=== PATIENT | female | born 1960 | race Caucasian/White ===

== ENCOUNTER → 2016-07-16 | Outpatient (CLI) | payer OTHER ==
[~2016-07-16] MED LIST: BROM5CAP PO; PRLD25 PO
== END | disposition home or self-care (01) ==
LOC: C.LAB1850 09:19
PROVIDERS: ATTEND Obstetrics & Gynecology
DX: Z80.41 Family history of malignant neoplasm of ovary (principal); D49.7 Neoplasm of unspecified behavior of endocrine glands and other parts of nervous system

== ENCOUNTER → 2016-09-19 | Outpatient (CLI) | payer OTHER ==
[~2016-09-19] MED LIST changes: -PRLD25 PO
--- NOTE | 2016-09-20 12:43 | MAMMOGRAPHY REPORT ---
BILATERAL DIGITAL SCREENING MAMMOGRAM TOMOSYNTHESIS WITH CAD: 09/19/2016 CLINICAL HISTORY: Routine screening. Patient has no complaints. TECHNIQUE: Breast tomosynthesis in addition to standard 2D mammography was performed. Current study was also evaluated with a Computer Aided Detection (CAD) system. COMPARISON: Comparison is made to exams dated: 09/15/2015 mammogram and 09/13/2014 mammogram - [facility]. Also prior outside mammograms dated 05/23/2010, 05/22/2009. BREAST COMPOSITION: There are scattered areas of fibroglandular density in both breasts. FINDINGS: No suspicious masses, calcifications, or areas of architectural distortion are noted in ei ther breast. There has been no significant interval change compared to prior exams. Scattered bilater al benign-appearing calcifications are not significantly changed. IMPRESSION: ACR BI-RADS CATEGORY 2: BENIGN There is no mammographic evidence of malignancy. A 1 year screening mammogram is recommended. The pa tient will receive written notification of the results. Approximately 10% of breast cancers are not detected with mammography. A negative mammographic report should not delay biopsy if a clinically suggestive mass is present. Chanel Valentin M.D. /:09/19/2016 15:55:18 Spectroscopist: Shalini BURGESS(Saul)(Marc)(BD), [facility] letter sent: Normal 1/2 BI-RADS Code: ACR BI-RADS Category 2: Benign
== END | disposition home or self-care (01) ==
LOC: C.MAMM 10:09
PROVIDERS: ATTEND Obstetrics & Gynecology
DX: Z12.31 Encounter for screening mammogram for malignant neoplasm of breast (principal)

== ENCOUNTER 2017-01-07 14:31 | Emergency (ER) | payer OTHER ==
[~2017-01-07] VITALS: Ht 175.3 cm; Wt 89.0 kg
[2017-01-07 14:42] VITALS: TEMP 36.8; Ht 175.3 cm; Wt 89.0 kg
--- NOTE | 2017-01-07 15:19 | DIAGNOSTIC IMAGING REPORT ---
CHEST ONE VIEW PORTABLE CLINICAL HISTORY: Chest pain. COMPARISON STUDY: No previous studies for comparison. FINDINGS: Lung volumes are normal. No pneumothorax or pleural effusion is present. Pulmonary vascularity is normal. No consolidation is identified. Cardiac size is at the upper limits of normal. IMPRESSION: No acute cardiopulmonary findings. Electronically signed by: Salas Reyes M.D. 01/07/2017 3:18 PM Dictated Date/Time: 01/07/2017 3:18 PM
[2017-01-07] MEDS ORDERED: PRLD25 PO (15:21)
[2017-01-07 15:26] VITALS: O2SAT 99
[2017-01-07 15:44] LABS: BASO % 0.3 %; BASO ABS # 0.02 K/uL (0-0.2); COMPLETE YES; EOS % 1.1 %; HEMATOCRIT 43.6 % (37-47); IG% 0.2 %; LYMPH % 38.9 %; LYMPH ABS # 2.55 K/uL (1.2-3.4); MEAN CELL VOLUME 93.6 fL (80-100); MEAN CORPUSCULAR HEMOGLOBIN 30.5 pg (25-34); MEAN CORPUSCULAR HGB CONC 32.6 g/dl (32-36); MEAN PLATELET VOLUME 11.2 fL (7.4-10.4); MONO % 6.4 %; NEUT % 53.1 %; PLATELET COUNT 180 K/uL (130-400); RED BLOOD COUNT 4.66 M/uL (4.2-5.4); WHITE BLOOD COUNT 6.56 K/uL (4.8-10.8)
[2017-01-07 16:01] LABS: ALT/SGPT 21 U/L (12-78); BLOOD UREA NITROGEN 23 mg/dl (7-18); BUN/CREATININE RATIO 29.8 (10-20); CALCIUM 8.7 mg/dl (8.5-10.1); CARBON DIOXIDE 27 mmol/L (21-32); CHLORIDE 107 mmol/L (98-107); CREATININE 0.77 mg/dl (0.60-1.20); GLUCOSE 82 mg/dl (70-99); POTASSIUM 3.7 mmol/L (3.5-5.1); SODIUM 142 mmol/L (136-145)
[2017-01-07 16:06] LABS: ALKALINE PHOSPHATASE 74 U/L (45-117); AST/SGOT 14 U/L (15-37); CKMB/CK RATIO 1.6 (0-3.0)
[2017-01-07 16:22] VITALS: BP 126/78; PULSE 78; O2SAT 97
--- NOTE | 2017-01-07 16:24 | EMERGENCY ROOM VISIT NOTE ---
History First contact with patient: 14:46 Chief Complaint: CHEST PAIN Stated Complaint: CHEST PAIN Nursing Triage Summary: CP substernal starting Friday, radiating to left shoulder and back with movement. Denies SOB. CP 210. History of Present Illness The patient is a 56 year old female who presents to the Emergency Room with complaints of substernal chest pain and left shoulder pain. The patient reports that her chest discomfort started on Friday. Today, she then started to have left shoulder discomfort. The patient believes it is because of her grandchild who is very active. The patient reports that she has been running after him over the past several days. The patient therefore believes that her symptoms are musculoskeletal, and noticed that her pain was worsened when her grandson was laying his head on her left anterior chest wall. The patient currently denies any pain extending into the neck or central back region. Her pain is not worsened with deep breathing, and is slightly worsened with movement. She currently denies any shortness of breath. The patient reports that she did have palpitations and heaviness that warranted an ER evaluation of a little over a year ago at her facility. The patient reports that she did not require cardiology follow-up, and denies any interim chest pain or other concerning symptoms. The patient denies any significant risk factors, and currently rates her discomfort a 2 out of 10. The patient has not noticed any diaphoresis or nausea. Her pain is not worsened with activity. She denies any recent upper respiratory infections. Review of Systems HEENT: Denies dizziness, visual problems, hearing loss, tinnitus. Denies difficulty swallowing or oral lesions. PULMONARY: Denies cough, shortness of breath, sputum production or hemoptysis. CARDIOVASCULAR: See history of present illness, otherwise denies palpitations, dyspnea on exertion, orthopnea or peripheral edema. GASTROINTESTINAL: Denies diarrhea, constipation, nausea, vomiting, or abdominal pain. GENITOURINARY: Denies dysuria, frequency, urgency or nocturia. NEUROLOGIC: Denies history of epilepsy, CVA, TIA or chronic headaches. MUSCULOSKELETAL: Denies history of joint tenderness/swelling. SKIN: Denies rashes or lesions. PSYCHIATRIC: Denies history of depression or mental illness. ENDOCRINE: Denies history of diabetes or thyroid disorders. Past Medical/Surgical History Medical Problems: (1) Asthma (2) History of ovarian cyst (3) Hx Of Ovarian Malignancy Surgical Problems: (1) History of tubal ligation Family History FH: cancer FH: heart disease Social History Smoking Status: Never Smoker Alcohol Use: occasionally Marital Status: Housing Status: lives with family Occupation Status: employed Current/Historical Medications Scheduled Bromocriptine Mesylate (Bromocriptine Mesylate), 2.5 MG PO HS Physical Exam Vital Signs Date Time Temp Pulse Resp B/P (MAP) Pulse Ox O2 Delivery O2 Flow Rate FiO2 01/07/17 15:40 73 20 125/76 94 Room Air 01/07/17 15:26 99 Room Air 01/07/17 15:22 83 01/07/17 14:42 36.8 80 18 152/88 96 Room Air 01/07/17 14:42 97 Room Air Physical Exam CONSTITUTIONAL: Healthy and well nourished. Alert and oriented X 3 with positive affect. Patient does not appear in any acute distress. HEENT: Normocephalic, atraumatic. Pupils equal, round and reactive. No scleral icterus or conjunctival injection/pallor. NECK: Full active range of motion without discomfort. No JVD or carotid bruits. RESPIRATORY: Clear to auscultation bilaterally with no wheezing, crackles, rhonchi or stridor. CARDIOVASCULAR: Regular rate and rhythm with no murmurs, rubs or gallops. GASTROINTESTINAL: Bowel sounds present in all quadrants. Abdomen is soft and nontender to palpation. No hepatosplenomegaly. Negative CVA tenderness. MUSCULOSKELETAL: Examination does not show any tenderness to palpation through the left shoulder. She has mild tenderness to the left anterior chest wall. Range of motion of the shoulder does not cause any significant discomfort. INTEGUMENTARY: No rash or other significant dermatologic conditions noted. HEMATOLOGIC: No ecchymosis or petechiae noted. NEUROLOGIC: No focal neurologic deficits noted. Medical Decision & Procedures ER Provider Diagnostic Interpretation: My interpretation of an ECG shows a normal sinus rhythm of [address] elevation or other conduction abnormalities. My interpretation of a portable chest x-ray does not show any consolidations, pneumothorax or other concerning findings. Radiologist report is that follows: CHEST ONE VIEW PORTABLE CLINICAL HISTORY: Chest pain. COMPARISON STUDY: No previous studies for comparison. FINDINGS: Lung volumes are normal. No pneumothorax or pleural effusion is present. Pulmonary vascularity is normal. No consolidation is identified. Cardiac size is at the upper limits of normal. IMPRESSION: No acute cardiopulmonary findings. Laboratory Results 01/07/17 15:20 Red Blood Count 4.66, Mean Corpuscular Volume 93.6, Mean Corpuscular Hemoglobin 30.5, Mean Corpuscular Hemoglobin Concent 32.6, Mean Platelet Volume 11.2, Neutrophils (%) (Auto) 53.1, Lymphocytes (%) (Auto) 38.9, Monocytes (%) (Auto) 6.4, Eosinophils (%) (Auto) 1.1, Basophils (%) (Auto) 0.3, Neutrophils # (Auto) 3.49, Lymphocytes # (Auto) 2.55, Monocytes # (Auto) 0.42, Eosinophils # (Auto) 0.07, Basophils # (Auto) 0.02 01/07/17 15:20 Test 01/07/17 15:20 White Blood Count 6.56 K/uL (4.8-10.8) Red Blood Count 4.66 M/uL (4.2-5.4) Hemoglobin 14.2 g/dL (12.0-16.0) Hematocrit 43.6 % (37-47) Mean Corpuscular Volume 93.6 fL (80-100) Mean Corpuscular Hemoglobin 30.5 pg (25-34) Mean Corpuscular Hemoglobin Concent 32.6 g/dl (32-36) Platelet Count 180 K/uL (130-400) Mean Platelet Volume 11.2 fL (7.4-10.4) Neutrophils (%) (Auto) 53.1 % Lymphocytes (%) (Auto) 38.9 % Monocytes (%) (Auto) 6.4 % Eosinophils (%) (Auto) 1.1 % Basophils (%) (Auto) 0.3 % Neutrophils # (Auto) 3.49 K/uL (1.4-6.5) Lymphocytes # (Auto) 2.55 K/uL (1.2-3.4) Monocytes # (Auto) 0.42 K/uL (0.11-0.59) Eosinophils # (Auto) 0.07 K/uL (0-0.5) Basophils # (Auto) 0.02 K/uL (0-0.2) RDW Standard Deviation 44.6 fL (36.4-46.3) RDW Coefficient of Variation 13.2 % (11.5-14.5) Immature Granulocyte % (Auto) 0.2 % Immature Granulocyte # (Auto) 0.01 K/uL (0.00-0.02) D-Dimer 420 ug/L FEU (0-500) Anion Gap 8.0 mmol/L (3-11) Est Creatinine Clear Calc Drug Dose 95.9 ml/min Estimated GFR () 99.3 Estimated GFR (Non- 85.7 BUN/Creatinine Ratio 29.8 (10-20) Calcium Level 8.7 mg/dl (8.5-10.1) Total Bilirubin 0.4 mg/dl (0.2-1) Direct Bilirubin 0.1 mg/dl (0-0.2) Aspartate Amino Transf (AST/SGOT) 14 U/L (15-37) Alanine Aminotransferase (ALT/SGPT) 21 U/L (12-78) Alkaline Phosphatase 74 U/L (45-117) Total Creatine Kinase 134 U/L (26-192) Creatine Kinase MB 2.1 ng/ml (0.5-3.6) Creatine Kinase MB Ratio 1.6 (0-3.0) Troponin I < 0.015 ng/ml (0-0.045) Total Protein 7.1 gm/dl (6.4-8.2) Albumin 3.5 gm/dl (3.4-5.0) Lipase 141 U/L (73-393) The above labs were reviewed and were grossly normal, including d-dimer and troponin.. ED Course Patient history and physical exam were performed. Nurse's notes were reviewed. Vital signs were reviewed and were normal. IV access was established, and labs were drawn. ECG and portable chest x-ray were normal. Review of labs does not show any acute abnormalities. D-dimer and troponin are normal. The patient denied any discomfort while in the emergency department. The case was further discussed with Dr. Broussard, ED attending physician, who agrees with further outpatient management. The patient was encouraged to alternate ice and heat to the chest and shoulder. She was encouraged to avoid any strenuous activities that may worsen her discomfort. I did encourage her to seek further reevaluation by her PCP within the next 24-48 hours. Return to the emergency department for worsening pain, shortness of breath, pressure, diaphoresis or nausea. The patient was happy with plan of care, voiced understanding of all discharge instructions, and denied any pain on final exam. Medical Decision The patient reports chest wall and left shoulder pain that started 4 days ago. Her workup today is not suggestive of myocardial infarction, pneumonia, pneumothorax or other acute intrathoracic etiology. Her pain is reproducible, therefore I suspect a muscular wall and shoulder strain. Medication Reconcilliation Current Medication List: was personally reviewed by me Blood Pressure Screening Patient's blood pressure: Normal blood pressure Impression Primary Impression: Chest wall muscle strain Additional Impression: Left shoulder strain Departure Information Referrals Lauren South PA-C (PCP) Patient Instructions My [facility] Problem Qualifiers Primary Impression: Chest wall muscle strain Encounter type: initial encounter Qualified Codes: S29.011A - Strain of muscle and tendon of front wall of thorax, initial encounter Additional Impression: Left shoulder strain Encounter type: initial encounter Qualified Codes: S46.912A - Strain of unspecified muscle, fascia and tendon at shoulder and upper arm level, left arm , initial encounter
== END 2017-01-07 16:42 | disposition home or self-care (01) ==
LOC: C.EDB 14:33 → C.EDC 16:42
DX: S29.011A Strain of muscle and tendon of front wall of thorax, initial encounter (principal); S46.912A Strain of unspecified muscle, fascia and tendon at shoulder and upper arm level, left arm, initial encounter; X58.XXXA Exposure to other specified factors, initial encounter; Z85.43 Personal history of malignant neoplasm of ovary; Z98.51 Tubal ligation status; Z80.9 Family history of malignant neoplasm, unspecified; Z82.49 Family history of ischemic heart disease and other diseases of the circulatory system

== ENCOUNTER → 2017-10-31 | Outpatient (CLI) | payer OTHER ==
[~2017-10-31] MED LIST changes: -BROM5CAP PO; +PRLD25 PO
[2017-10-31 19:19] LABS: BASO % 0.3 %; BASO ABS # 0.02 K/uL (0-0.2); EOS % 1.2 %; EOS ABS # 0.09 K/uL (0-0.5); HEMATOCRIT 45.2 % (37-47); HEMOGLOBIN 14.9 g/dL (12.0-16.0); IG# 0.01 K/uL (0.00-0.02); LYMPH % 36.5 %; LYMPH ABS # 2.64 K/uL (1.2-3.4); MEAN CORPUSCULAR HEMOGLOBIN 30.7 pg (25-34); MEAN PLATELET VOLUME 11.5 fL (7.4-10.4); MONO % 7.3 %; MONO ABS # 0.53 K/uL (0.11-0.59); NEUT % 54.6 %; NEUT ABS # 3.94 K/uL (1.4-6.5); PLATELET COUNT 206 K/uL (130-400); RED CELL DISTRIBUTION WIDTH CV 13.3 % (11.5-14.5); WHITE BLOOD COUNT 7.23 K/uL (4.8-10.8)
[2017-10-31 19:27] LABS: PTT PATIENT 26.5 SECONDS (21.0-31.0)
[2017-10-31 19:47] LABS: ALBUMIN 3.6 gm/dl (3.4-5.0); ALKALINE PHOSPHATASE 82 U/L (45-117); ALT/SGPT 20 U/L (12-78); AST/SGOT 13 U/L (15-37); BLOOD UREA NITROGEN 18 mg/dl (7-18); CALCIUM 8.7 mg/dl (8.5-10.1); CARBON DIOXIDE 28 mmol/L (21-32); CREATININE 0.77 mg/dl (0.60-1.20); GLUCOSE 79 mg/dl (70-99); POTASSIUM 3.6 mmol/L (3.5-5.1); SODIUM 141 mmol/L (136-145); TOTAL PROTEIN 7.8 gm/dl (6.4-8.2)
== END | disposition home or self-care (01) ==
LOC: C.LAB 17:53
PROVIDERS: ATTEND Obstetrics & Gynecology
DX: D49.7 Neoplasm of unspecified behavior of endocrine glands and other parts of nervous system (principal); Z80.41 Family history of malignant neoplasm of ovary; D69.2 Other nonthrombocytopenic purpura